=== PATIENT | female | born 1975 | race Caucasian/White ===

== ENCOUNTER 2016-12-03 16:47 | Emergency (ER) | payer MEDICAID ==
[~2016-12-03] VITALS: Ht 162.6 cm; Wt 55.0 kg
[2016-12-03 16:55] VITALS: BP 120/82; PULSE 91; RESP 16; TEMP 98.9; O2SAT 96
[2016-12-03] MEDS ORDERED: LINA290C PO (17:05)
[2016-12-03] MEDS ORDERED: ADDE30TA PO (17:05)
--- NOTE | 2016-12-03 17:28 | PD ---
HPI Chief Complaint: Injury Time Seen by Provider: 17:23 Travel History International Travel<30 days: No Contact w/Intl Traveler<30days: No Traveled to known affect area: No History of Present Illness HPI 41-year-old female presents the emergency Department with injury to the left foot, ankle, and lower leg earlier this morning while in [facility] at the airport. Patient was getting out of her truck with her son when she slipped and fell injuring her foot, ankle, and lower leg. Patient had to get on the flight to come down here see her daughter and she is now here for an evaluation of this injury. Patient complains of pain in the left lateral foot, ankle, and lateral freed. Patient has noted swelling and ecchymosis in the foot. She is having difficulty ambulating secondary to pain. She states some numbness in the left third, fourth and fifth toes. Patient denies other injury. Patient states pain is making her nauseous. Pain is rated as an 8/10 is moving or ambulating. It's a 4 out of 10 while at rest. Patient has no known drug allergies. PFSH Past Medical History Hx Anticoagulant Therapy: No ADHD: Yes Diabetes: No Medical other: Yes ?: Not Past Surgical History Abdominal Surgery: Yes (MULTIPLE BOWEL OBSTRUCTIONS) Social History Alcohol Use: No Tobacco Use: No Substance Use: No Allergies-Medications (Allergen,Severity, Reaction): Coded Allergies: No Known Allergies (Unverified , 12/03/16) Reported Meds & Prescriptions Reported Meds & Active Scripts Active Reported Adderall (Amphetamine-Dextroamphetamine) 30 Mg Tab 30 Mg PO DAILY PRN Avoid late evening doses. Space doses at least 4 to 6 hours if more than once/day dosing. Linzess (Linaclotide) 290 Mcg Cap 290 Mcg PO DAILY Review of Systems Except as stated in HPI: all other systems reviewed are Neg General / Constitutional: No: Fever Eyes: No: Visual changes HENT: No: Headaches Cardiovascular: No: Chest Pain or Discomfort Respiratory: No: Shortness of Breath Gastrointestinal: No: Abdominal Pain Genitourinary: No: Dysuria Musculoskeletal: Positive: Arthralgias, Limited ROM, Pain Skin: No Rash Neurologic: No: Weakness Psychiatric: No: Depression Endocrine: No: Polydipsia Hematologic/Lymphatic: No: Easy Bruising Physical Exam Narrative GENERAL: Patient appears in mild to moderate distress. SKIN: Warm and dry. Normal color. Normal turgor. No abrasions. No open wounds. Patient has ecchymosis over the left dorsal lateral foot. HEAD: Atraumatic. Normocephalic. EYES: Pupils equal and round. No scleral icterus. No injection or drainage. ENT: No nasal bleeding or discharge. Mucous membranes pink and moist. Pharynx is normal. NECK: Trachea midline. Neck is supple nontender. CARDIOVASCULAR: Regular rate and rhythm. No murmurs gallops or rubs. RESPIRATORY: No accessory muscle use. Clear to auscultation. Breath sounds equal bilaterally. MUSCULOSKELETAL: Extremities without clubbing, cyanosis, or edema. No obvious deformities. Patient has swelling over the dorsal lateral foot with pain with palpation at the base of the fifth metatarsal, as well as in the midshaft of the left fibula. There is no significant deformity or pain over the left lateral malleolus. NEUROLOGICAL: Awake and alert. No obvious cranial nerve deficits. Motor grossly within normal limits. Five out of 5 muscle strength in the arms and legs. Normal speech. PSYCHIATRIC: Appropriate mood and affect; insight and judgment normal. Data Data Last Documented VS Vital Signs Date Time Temp Pulse Resp B/P Pulse Ox O2 Delivery O2 Flow Rate FiO2 12/03/16 16:55 98.9 91 16 120/82 96 Orders Foot, Complete (Hpq2sxu) (12/03/16 17:20) Tibia/Fibula (Ap/Lat) (12/03/16 17:20) Ketorolac Inj (Toradol Inj) (12/03/16 17:30) Ondansetron Odt (Zofran Odt) (12/03/16 17:30) Crutches (12/03/16 17:54) Support Splint (12/03/16 17:54) MDM Medical Decision Making Medical Screen Exam Complete: Yes Emergency Medical Condition: Yes Differential Diagnosis Fall. Left ankle fracture. Left foot fracture. Left fibular fracture. Left lower leg sprain. Left foot sprain. Left foot contusion. Narrative Course Patient is medically stable at time of exam. She is given 4 mg Zofran ODT by mouth. Patient is given Toradol 60 mg IM. X-rays of the left foot, ankle, and tib-fib are ordered. X-rays are unremarkable per radiologist. Patient is placed in a Miranda's splint and crutches for comfort. Patient is given a prescription for ibuprofen 600 mg 4 times a day #40. Patient is also given prescription for pseudomonas and 500 mg 2 tabs every 6 hours when necessary #60. Patient can bear weight as tolerated as the week goes by. She should try it elevated and ice it frequently for the next 48 hours. Patient can follow up if symptoms do not improve or worsen as discussed. Diagnosis Primary Impression: Unspecified sprain of left foot, initial encounter Additional Impression: Left ankle sprain Qualified Code: S93.402A - Sprain of left ankle, unspecified ligament, initial encounter Referrals: Primary Care Physician Patient Instructions: Ankle Sprain (ED), Ankle Sprain Exercises (GEN), Foot Sprain (ED), General Instructions Additional Instructions: Patient is given Toradol 60 mg IM. X-rays of the left foot, ankle, and tib-fib are ordered. X-rays are unremarkable per radiologist. Patient is placed in a Miranda's splint and crutches for comfort. Patient is given a prescription for ibuprofen 600 mg 4 times a day #40. Patient is also given prescription for pseudomonas and 500 mg 2 tabs every 6 hours when necessary #60. Patient can bear weight as tolerated as the week goes by. She should try it elevated and ice it frequently for the next 48 hours. Patient can follow up if symptoms do not improve or worsen as discussed. Med/Other Pt SpecificInfo: Prescription(s) given Disposition: 01 DISCHARGE HOME Condition: Stable Nimesh Morris Dec 03, 2016 17:28
[2016-12-03] MEDS ORDERED: ONDANSETRON ODT 4 MG TAB PO ONE (17:30)
[2016-12-03] MEDS ORDERED: KETOROLAC TROMETHAMINE 60 MG/2 ML (IM) VIAL IM ONE (17:30)
--- NOTE | 2016-12-03 17:56 | RADHPO ---
EXAM DATE/TIME: 12/03/2016 17:24 [facility] COMPARISON: No previous studies available for comparison. INDICATIONS : Left distal tibia/fibula pain post fall. MEDICAL HISTORY : None. SURGICAL HISTORY : None. ENCOUNTER: Initial ACUITY: 1 day PAIN SCORE: 10/10 LOCATION: Left tibia/fibula FINDINGS: Two view examination of the left tibia demonstrates no evidence of fracture or dislocation. Bony min eralization is normal. The soft tissue structures are intact. CONCLUSION: Unremarkable examination of the left tibia. Xiang Church MD on December 03, 2016 at 17:54 Board Certified Radiologist. This report was verified electronically.
--- NOTE | 2016-12-03 18:00 | RADHPO ---
EXAM DATE/TIME: 12/03/2016 17:39 [facility] COMPARISON: No previous studies available for comparison. INDICATIONS : Left lateral foot pain post fall. MEDICAL HISTORY : None. SURGICAL HISTORY : None. ENCOUNTER: Initial ACUITY: 1 day PAIN SCORE: 10/10 LOCATION: Left lateral foot FINDINGS: There are a couple of tiny ossific fragments adjacent to the dorsal aspect of the distal talus. These could be tiny chip fragments. Correlation with possible point tenderness at the anterior ankle would be suggested. The foot is otherwise intact with normal mineralization. Articulations are intact. CONCLUSION: Tiny ossific fragments adjacent to the dorsal talus. Xiang Church MD on December 03, 2016 at 17:55 Board Certified Radiologist. This report was verified electronically.
[2016-12-03 18:27] VITALS: RESP 18
== END 2016-12-03 18:27 | disposition home or self-care (01) ==
LOC: PHEFT 16:47
DX: S93.602A Unspecified sprain of left foot, initial encounter (principal); W01.10XA Fall on same level from slipping, tripping and stumbling with subsequent striking against unspecified object, initial encounter; Y93.89 Activity, other specified; Y92.520 Airport as the place of occurrence of the external cause; Y99.9 Unspecified external cause status
CPT/HCPCS: 29515; 73590; 73630; 96372; 99283; E0113; J1885